=== PATIENT | male | born 1955 ===

== ENCOUNTER 2024-11-10 05:14 | Day surgery (SDC) | payer OTHER ==
[2024-11-04 11:12] LABS: BASO % 0.3 % (0.1-1.2); EOS # 0.07 (0.04-0.54); EOS % 2.1 % (0.7-7.0); HEMATOCRIT 37.3 % (40.1-51.0); HEMOGLOBIN 12.4 g/dL (13.7-17.5); LYMPH # 0.52 (1.18-3.74); LYMPH % 15.9 % (19.3-53.1); MEAN CORPUSCULAR HEMOGLOBIN 28.1 pg (25.6-32.2); NEUT # 2.27 (1.56-6.13); NEUT % 69.2 % (34.0-71.1); PLATELET COUNT 186 K/uL (163-369); RED BLOOD COUNT 4.41 M/uL (4.63-6.08); RED CELL DISTRIBUTION WIDTH 13.3 % (11.6-14.4)
[2024-11-04 11:23] LABS: MONO % 12.2 % (4.7-12.5)
[2024-11-04 11:30] LABS: INR 1.11
[2024-11-04 11:51] LABS: PH,URINE 5.5 (5.0-8.0); URINE APPEARANCE Clear; URINE BILIRRUBIN Negative (NEGATIVE); URINE BLOOD Negative; URINE COLOR Yellow; URINE GLUCOSE Negative (NEGATIVE); URINE KETONE Negative (NEGATIVE); URINE LEUKOCYTE Negative; URINE NITRATE Negative; URINE PROTEIN Negative (NEGATIVE); URINE UROBILINOGEN 0.2 E.U./dl
[2024-11-04 11:55] LABS: URINE RBC 4.2 uL (0.0-20.8)
[2024-11-04 12:20] VITALS: BP 166/78
[2024-11-04 12:40] LABS: ALBUMIN 3.6 gm/dL (3.4-5.0); ALKALINE PHOSPHATASE 64 U/L (50-136); ALT/SGPT 25 U/L (12-78); ANION GAP 7 (10.0-20.0); AST/SGOT 21 U/L (15-37); BILIRUBIN TOTAL 0.32 mg/dL (0.3-1.2); BILIRUBIN,CONJUGATED < 0.10 mg/dL (0.0-0.2); BILIRUBIN,UNCONJUGATED 0.22 mg/dL (0.0-0.6); BLOOD UREA NITROGEN 22 mg/dL (7-18); BUN CREA RATIO 27 (7.0-25.0); CALCIUM 9.7 mg/dL (8.5-10.1); CARBON DIOXIDE 33 mEq/L (21-32); CHLORIDE 110 mmol/L (98-107); CREATININE SERUM 0.82 mg/dL (0.70-1.30); GFR 93.15; GLUCOSE FASTING 108 mg/dL (65-100); OSMOLALITY SERUM 293 MOSM/KG (275-295); POTASSIUM 4.65 mEq/L (3.5-5.1); SODIUM 145 mmol/L (136-145); TOTAL PROTEIN 6.6 gm/dL (6.4-8.2)
[2024-11-04 12:55] LABS: URINE EPITHELIAL CELLS 0.4 uL (0.0-38.8); URINE WBC 1.7 uL (0.0-23.2)
[~2024-11-10] VITALS: Ht 170.2 cm; Wt 74.8 kg
[~2024-11-10 05:14] MED LIST: LEUPROLIDE
[2024-11-10] MEDS ORDERED: BUPIVACAINE HCL/PF 0.25% 30ML VIAL InF ONE (08:15)
[2024-11-10] MEDS ORDERED: CEFOXITIN SODIUM 2,000 MG VIAL IV ONE (08:15)
[2024-11-10] MEDS ORDERED: LIDOCAINE HCL 1% 20 ML VIAL IJ ONE (08:15)
[2024-11-10] MEDS ORDERED: PERCOCET 5-3251 EACH PO (08:44)
[2024-11-10] MEDS ORDERED: PROTONIX40 MG PO (08:45)
[2024-11-10] MEDS ORDERED: ZOFRAN8 MG PO (08:45)
[2024-11-10] MEDS ORDERED: MORPHINE SULFATE 4 MG/ML VIAL IV ONE ×2 (09:30→10:35)
[2024-11-10] MEDS ORDERED: SUGAMMADEX SODIUM 200 MG/2 ML VIAL IV ONE (10:30)
== END 2024-11-10 11:50 | disposition home or self-care (01) ==
LOC: CIR.AMB 05:14
PROVIDERS: ATTEND Surgery
DX: K80.10 Calculus of gallbladder with chronic cholecystitis without obstruction (principal)